=== PATIENT | female | born 1990 | race Two or more races ===

== ENCOUNTER 2019-10-12 20:07 | Emergency (ER) | payer OTHER ==
--- NOTE | 2019-10-12 20:42 | ED ---
Influenza-Like Illness - HPI Summary HPI Summary: 29 year old female presents to the ED with a chief complaint of flu-like symptoms for the last 2 days, worsening today. 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 She reports difficulty breathing, head pain, myalgia, fever, chills, sore throat, cough, sneezing, nausea, and diarrhea. Patient is able to speak in full sentences. Tmax is unknown. History of asthma. Patient does not smoke tobacco. - History of Current Complaint Chief Complaint: EDUpperRespComplaint Time Seen by Provider: 10/12/19 20:33 Hx Obtained From: Patient Hx From Patient Unobtainable Due To: Dementia Onset/Duration: Gradual Onset, Lasting Days Associated Signs & Symptoms: Fever - Tmax unknown. Also reports nausea and SOB, Myalgia, Cough, Sore Throat, Nasal Congestion, Headache, Diarrhea - Allergy/Home Medications Allergies/Adverse Reactions: Allergies Allergy/AdvReac Type Severity Reaction Status Date / Time No Known Allergies Allergy Verified 10/12/19 20:17 Home Medications: Home Medications NK [No Home Medications Reported] 10/12/19 [History Confirmed 10/12/19] PMH/Surg Hx/FS Hx/Imm Hx Previously Healthy: Yes Respiratory History: Reports: Hx Asthma Infectious Disease History: No Infectious Disease History: Denies: Traveled Outside the [place] in Last 30 Days - Family History Known Family History: Positive: None - Social History Alcohol Use: None Substance Use Type: Reports: None Smoking Status (MU): Never Smoked Tobacco Review of Systems Positive: Fever, Chills Positive: Sore Throat Positive: Shortness Of Breath, Cough Positive: Diarrhea, Nausea Positive: Myalgia Positive: Headache All Other Systems Reviewed And Are Negative: Yes Physical Exam - Summary Physical Exam Summary: Constitutional: Well-developed, Well-nourished, Alert. (-) Distressed Skin: Warm, Dry HENT: Normocephalic; Atraumatic Eyes: Conjunctiva normal Neck: Musculoskeletal ROM normal neck. (-) JVD, (-) Stridor, (-) Tracheal deviation Cardio: Rhythm regular, rate normal, Heart sounds normal; Intact distal pulses; The pedal pulses are 2+ and symmetric. Radial pulses are 2+ and symmetric. (-) Murmur Pulmonary/Chest wall: Effort normal. (-) Respiratory distress, (-) Wheezes, (-) Rales Abd: Soft, (-) tenderness, (-) Distension, (-) Guarding, (-) Rebound Musculoskeletal: (-) Edema Lymph: (-) Cervical adenopathy Neuro: Alert, Oriented x3 Psych: Mood and affect Normal Triage Information Reviewed: Yes Vital Signs On Initial Exam: Initial Vitals Temp Pulse Resp BP Pulse Ox 97.5 F 97 16 110/74 97 10/12/19 20:11 10/12/19 20:11 10/12/19 20:11 10/12/19 20:11 10/12/19 20:11 Vital Signs Reviewed: Yes Procedures - Sedation Patient Received Moderate/Deep Sedation with Procedure: No Diagnostics - Vital Signs Vital Signs Temp Pulse Resp BP Pulse Ox 10/12/19 20:11 97.5 F 97 16 110/74 97 - Laboratory Lab Statement: Any lab studies that have been ordered have been reviewed, and results considered in the medical decision making process. - Radiology CXR Radiology Interpretation Completed By: ED Physician Summary of Radiographic Findings: No acute disease. An ED physician has reviewed and interpreted this scan. Pending official read. Flu Symptom Course/Dx - Course Course Of Treatment: 29 year old female presents to the ED with a chief complaint of flu-like symptoms for the last 2 days, worsening today. 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 She reports difficulty breathing, head pain, myalgia, fever, chills, sore throat, cough, sneezing, nausea, and diarrhea. Patient is able to speak in full sentences. Tmax is unknown. History of asthma. Patient does not smoke tobacco. Physical exam is normal. Chest XR shows no acute disease. Influenza A and B rapid tests returned negative. COVID-19 test results pending. Diagnosis is URI. Patient will be discharged home with instructions to self quarantine. She should see [facility] in 3-5 days for follow up. Patient understands and agrees with this plan. - Diagnoses Provider Diagnoses: URI (upper respiratory infection) Discharge ED - Sign-Out/Discharge Documenting (check all that apply): Patient Departure - discharge home - Discharge Plan Condition: Stable Disposition: HOME Patient Education Materials: Upper Respiratory Infection (ED) Forms: COVID-19 Tested & Isolation Referrals: [facility] [Outside] Additional Instructions: Follow up with [facility] in 3-5 days. Please self-quarantine until COVID- 19 tests return. Return to the ED if you experience new or worsened symptoms. - Billing Disposition and Condition Condition: STABLE Disposition: Home - Attestation Statements Document Initiated by Toni: Yes Documenting Scribe: Frank Santana Provider For Whom Toni is Documenting (Include Credential): Sid Morris DO Scribinna Attestation: IFrank scribed for Sid Morris DO on 10/13/19 at 0001. Scribe Documentation Reviewed: Yes Provider Attestation: The documentation as recorded by the Frank mendez accurately reflects the service I personally performed and the decisions made by Sid rhodes DO Status of Scrjasbir Document: Viewed
[2019-10-12 22:22] LABS: Influenza A Molecular Negative (Negative); Influenza B Molecular Negative (Negative)
[2019-10-13 00:19] VITALS: BP 132/85
== END 2019-10-12 22:55 | disposition home or self-care (01) ==
LOC: ED 20:07
DX: J06.9 Acute upper respiratory infection, unspecified (principal); R11.0 Nausea; R06.02 Shortness of breath; Z20.828 Contact with and (suspected) exposure to other viral communicable diseases
CPT/HCPCS: 71045; 99282; U0002